=== PATIENT | female | born 1985 | race American Indian/Alaskan Native ===

== ENCOUNTER 2019-10-06 05:08 | Emergency (ER) | payer OTHER ==
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
[2019-10-06] MEDS ORDERED: IBUPROFEN 800 MG TAB PO ONE (09:01)
[2019-10-06] MEDS ORDERED: SODIUM CHLORIDE 0.9% 500 ML 500 ML IV ONE (09:03)
[2019-10-06 09:45] VITALS: BP 116/70
== END 2019-10-06 10:16 | disposition home or self-care (01) ==
LOC: ED 05:08
DX: B34.9 Viral infection, unspecified (principal); R05 Cough; R50.9 Fever, unspecified; E05.90 Thyrotoxicosis, unspecified without thyrotoxic crisis or storm; Z98.890 Other specified postprocedural states; Z79.899 Other long term (current) drug therapy
CPT/HCPCS: 99283; J7040